=== PATIENT | male | born 1945 | race Caucasian/White ===

== ENCOUNTER 2016-12-24 09:00 | Outpatient (RCR) | payer OTHER | END 2016-12-28 | disposition home or self-care (01) | LOC: PTY 09:00 | DX: S76.019D Strain of muscle, fascia and tendon of unspecified hip, subsequent encounter (principal); X58.XXXD Exposure to other specified factors, subsequent encounter ==

== ENCOUNTER 2017-01-12 08:40 | Outpatient (RCR) | payer OTHER | END 2017-01-28 | disposition home or self-care (01) | LOC: PTY 08:40 | DX: S76.019A Strain of muscle, fascia and tendon of unspecified hip, initial encounter (principal) ==